=== PATIENT | female | born 1950 | race Caucasian/White ===

== ENCOUNTER 2025-10-08 11:22 | Emergency (ER) | payer MEDICARE ==
[~2025-10-08] VITALS: Ht 162.6 cm; Wt 67.0 kg
--- NOTE | 2025-10-08 11:31 | ELECTROCARDIOGRAPH REPORT ---
[facility] Test Date: 2025-10-08 Test Time: 11:29:40 Pat Name: ARI LEE Department: [facility]- Patient ID: [facility]-[id number] Room: Gender: F Rn Examiner: : 1950 Requested By: PREMA MEDINA Order Number: [id number] Reading MD: Measurements Intervals [place] Rate: 72 P: 71 WI: 137 QRS: 20 QRSD: 92 T: 62 QT: 497 QTc: 545 Interpretive Statements Sinus rhythm Borderline T wave abnormalities Prolonged QT interval Please click the below link to view image of tracing.
[2025-10-08 11:36] VITALS: TEMP 98.4
[2025-10-08 11:59] LABS: MEAN PLATELET VOLUME 7.0 FL (7.4-10.4); RED CELL DISTRIBUTION WIDTH 13.8 % (11.5-14.5)
--- NOTE | 2025-10-08 12:16 | RADIOLOGY REPORT ---
CHEST RADIOGRAPH INDICATION: CP TECHNIQUE: Single frontal view of the chest was obtained COMPARISON: None FINDINGS: Lines and Tubes: None Lungs: No focal consolidation. Pleura: No effusion. No pneumothorax. Cardiomediastinal contours: Unremarkable Bones: No acute osseous abnormality. IMPRESSION: 1. No acute cardiopulmonary disease.
[2025-10-08 12:21] LABS: CREATININE 0.99 MG/DL (0.40-0.90); PRO BRAIN NATRIURETIC PEPTIDE 73 PG/ML (0-450); TOTAL CARBON DIOXIDE 29.2 MMOL/L (24-32); eCRCL 41 ML/MIN; eGFR 54 ML/MIN
--- NOTE | 2025-10-08 12:38 | Physician Documentation ---
History of Present Illness ~ Chief Complaint: Chest Pain Stated Complaint: CHEST PAIN Time Seen by MD: 13:58 HPI A 75-year-old female with a history of fibromyalgia. She reports that she has chronic shortness of breath, but denies COPD. This morning, she began to have burning in her chest. The pain is worse with a deep breath, worse with touch. She describes it as left sided. No chills or fever. Denies cardiac history. Medication Reconciliation Allergies: Coded Allergies: No Known Allergies (Unverified , 10/08/25) Review of Systems ROS As stated above in the HPI, otherwise all systems are reviewed and negative. Physical Exam Vital Signs: Temperature: 98.4, Source: Temporal, Heart Rate: 87, Respiratory Rate: 18, BP: 146/68, Pulse Oximetry: 100, Weight: 67.000 Oxygen Flow Rate: 0 Physical Exam General: Alert, no apparent distress. HEENT: PERRL, EOMI, no injection, moist mucous membranes. Neck: Full range of motion. Respiratory: Lungs clear, no respiratory distress. Chest: No accessory muscle use. TTP of chest. Cardiovascular: Regular rate and rhythm, no murmurs. Gastrointestinal: Soft, nontender, nondistended. Bowels sounds present. Extremities: Normal range of motion, no deformity. Neurologic: Oriented x4. Psychiatric: Normal mood and affect. Skin: Normal color, warm and dry. No edema, no ecchymosis. Progress Results/Orders Results/Orders Orders - LARISSA ESPINO [employer] Electrocardiogram (10/08/25 ) Vital Signs 10/08/25 10/08/25 11:36 13:23 Temp 98.4 Pulse 87 82 Resp 18 18 B/P (MAP) 146/68 114/78 (90) Pulse Ox 100 98 O2 Flow Rate 0 Laboratory Tests Test 10/08/25 11:37 10/08/25 13:27 White Blood Count 6.2 Red Blood Count 4.93 Hemoglobin 14.4 Hematocrit 43.1 Mean Corpuscular Volume 87.4 Mean Corpuscular Hemoglobin 29.1 Mean Corpuscular Hemoglobin Concent 33.3 Red Cell Distribution Width 13.8 Platelet Count 293 Mean Platelet Volume 7.0 L Neutrophils (%) (Auto) 70.8 Lymphocytes (%) (Auto) 15.5 L Monocytes (%) (Auto) 11.5 Eosinophils (%) (Auto) 1.5 Basophils (%) (Auto) 0.7 Neutrophils # (Auto) 4.4 Lymphocytes # (Auto) 1.0 L Monocytes # (Auto) 0.7 Eosinophils # (Auto) 0.1 Basophils # (Auto) 0.0 CBC Comment Sodium Level 145 Potassium Level 3.7 Chloride Level 109 H Carbon Dioxide Level 29.2 Anion Gap 7 L Blood Urea Nitrogen 18 Creatinine 0.99 H Estimated GFR/1.73 m2 54 BUN/Creatinine Ratio 18.2 Glucose Level 98 Calcium Level 9.7 Troponin I High Sensitivity 5 6 Pro-B-Type Natriuretic Peptide 73 Albumin 3.9 Chemistry Comments Troponin I High Sens Percent Delta 20 Troponin I Hi Sens Absolute Change 1 EKG/XRAY/CT/US/VASC/MRI Chest X-Ray : Additional Comments [address] [address] DIAGNOSTIC RADIOLOGY Patient: ARI LEE Medical Record: [id number] [facility] 1950, Age: 75 Sex: Female Location: ER Patient Status: [facility] ER Service Date/Time: 10/08/25/ 1150 Ordering Physician: PREMA MEDINA MD Exam: CHEST,SINGLE VIEW CHEST RADIOGRAPH INDICATION: CP TECHNIQUE: Single frontal view of the chest was obtained COMPARISON: None FINDINGS: Lines and Tubes: None Lungs: No focal consolidation. Pleura: No effusion. No pneumothorax. Cardiomediastinal contours: Unremarkable Bones: No acute osseous abnormality. IMPRESSION: 1. No acute cardiopulmonary disease. Electronically Signed by:DORI CABRERA MD Date & Time: 10/08/25 1213 Dictated by: DORI CABRERA MD Dictation date and time: 10/08/25 1148 Primary Care Provider: NO PRIMARY CARE PROVIDER cc: PREMA MEDINA MD ~ Medical Decision Making Additional information obtaine: old records Findings Last seen in 2017 for abd pain. Heart Score: 3 Differential Dx:Considerations: Include: other Additional Information Medical Decision-Making This 75-year-old female presents with chest pain that is pleuritic in nature and reproducible with palpation, clinical features that significantly reduce the likelihood of acute coronary syndrome (ACS). While advanced age is a significant risk factor for ACS and warrants heightened clinical suspicion, the character of her pain combined with objective testing strongly supports a non-cardiac etiology.[3-4] Differential Diagnosis: Costochondritis or musculoskeletal chest wall pain (most likely) Pleuritis or pleural irritation Pneumonia Gastroesophageal reflux disease Pericarditis Acute coronary syndrome (ruled out, see below) Pulmonary embolism (low probability given clinical presentation) Rationale for Ruling Out Acute Coronary Syndrome: The patient meets low-risk criteria for ACS based on multiple validated clinical decision pathways. Specifically:[2-3] Electrocardiographic findings: Normal ECG without ST-segment elevation, ST- segment depression, T-wave inversions, or other ischemic changes. Serial ECGs would be recommended if symptoms were ongoing, but the initial normal ECG is reassuring in this clinical context.[1][5] Cardiac biomarkers: Two negative troponin measurements effectively rule out myocardial infarction with a negative predictive value approaching 99%. The [place] [employer] guidelines recommend serial troponin testing over 1-3 hours for risk stratification, which has been completed in this case .[2-3][5-7] Clinical risk stratification: Using validated clinical decision pathways such as the HEART score or EDACS, this patient would be classified as low risk given her nonischemic ECG, negative serial troponins, and absence of prior cardiac disease. Patients meeting these low-risk criteria have a 30-day major adverse cardiac event rate of less than 1%.[2-3] Absence of cardiac history: No known coronary artery disease, prior myocardial infarction, or cardiac interventions further reduces pre-test probability of ACS.[8] Clinical Reasoning Supporting Non-Cardiac Etiology: The pleuritic nature of the chest pain (worse with deep breathing) and reproducibility with palpation are highly characteristic of musculoskeletal or chest wall pathology rather than cardiac ischemia. Physical examination findings of chest wall tenderness strongly suggest costochondritis or musculoskeletal ch est wall pain as the primary diagnosis.[3-4] The negative chest radiograph excludes pneumothorax, significant pneumonia, and other acute pulmonary processes that could present with pleuritic chest pain. While the [employer] guidelines recommend considering other life-threatening conditions including pulmonary embolism, aortic dissection, and pericarditis in the initial evaluation, the clinical presentation and examination findings make these diagnoses unlikely.[1] In patients with low-risk chest pain who have been ruled out for ACS, non- cardiac causes are significantly more common than cardiac disease. Specifically, in low-risk populations, gastrointestinal disease, musculoskeletal conditions, and anxiety each exceed coronary artery disease prevalence by a factor of 10.[4] Plan: Given the successful exclusion of ACS and other immediately life-threatening conditions, no further cardiac testing is indicated. The [employer] Association/[employer] College of [employer] guidelines explicitly state there is no evidence to support routine admission or cardiac testing for low-risk chest pain patients. [3-4] The patient can be safely managed with treatment directed at the most likely diagnosis of musculoskeletal chest wall pain, with consideration of anti- inflammatory therapy and reassurance. Outpatient follow-up is appropriate for symptom monitoring and to address any alternative diagnoses if symptoms persist or change in character.[9] Departure Time of Disposition: 13:58 Disposition: 01 HOME / SELF CARE / HOMELESS Impression: Primary Impression: Chest pain Condition: Stable Discharge Instructions: Nonspecific Chest Pain, Adult Additional Instructions: Your EKG and troponins were normal. Try low dose Ibuprofen 400 mg twice daily and application of ice to the chest for pain. Please followup with your primary care provider. Your pain could be caused from musculoskeletal strain or acid reflux. It does not appear to represent a problem with your heart. Nonetheless, return if worse and otherwise followup with your primary care. Referrals: NO PRIMARY CARE PROVIDER (PCP) Education Educated: Patient, Family Educated regarding: diagnosis, treatment, prognosis, need for follow up Signature Scribe Signature: x Attestation: The note accurately reflects work and decisions made by me.Larissa Collazo NP 10/08/25 12:51 LARISSA ESPINO NP Oct 08, 2025 12:38
[2025-10-08 14:17] VITALS: BP 142/85; PULSE 75; RESP 18; O2SAT 95
== END 2025-10-08 14:19 | disposition home or self-care (01) ==
LOC: ER 11:23
DX: R07.9 Chest pain, unspecified (principal); M79.7 Fibromyalgia
CPT/HCPCS: 36415; 71045; 80048; 83880; 84484; 85025; 93005; 99285